=== PATIENT | female | born 1955 | race Caucasian/White ===

== ENCOUNTER 2017-07-02 13:10 | Emergency (ER) | payer BC, OTHER ==
[2017-07-02 13:41] VITALS: TEMP 98.1; BMI 30.1
[2017-07-02] MEDS ORDERED: SODIUM CHLORIDE 1,000 ML IV STA (13:49)
--- NOTE | 2017-07-02 13:49 | PDOC ---
History of Present Illness - General Chief Complaint: Lightheaded Stated Complaint: DIZZY, SLEEPY, & VISION CHANGE Time Seen by Provider: 07/02/17 13:20 - History of Present Illness Initial Comments: 07/02/17 13:50 62 F with h/o HTN presents to ER with somnolence and dizziness. Pt believes she accidentally took an ambien. She states that she thinks she may have placed one in her pillbox just in case she needed it. However, she is not certain. Pt took her meds at around 12 today and states that about 30 minutes later, she began to feel very sleepy and "woozy". She denies any unilateral weakness or numbness. Denies double vision or blurred vision. Denies slurred speech, though she states her mouth feels very dry. Pt does not know if this is a normal reaction to ambien for her, as she has only taken it a few occasions and usually goes directly to bed. Pt denies PICKENS/N/V. Denies F/C. Denies CP/SOB. Denies room-spinning sensation. Past History - Past Medical History Allergies/Adverse Reactions: Allergies Allergy/AdvReac Type Severity Reaction Status Date / Time No Known Allergies Allergy Unverified 07/02/17 13:41 Home Medications: Ambulatory Orders Ambien 07/02/17 Cholecalciferol (Vitamin D3) [Vitamin D3] 1,000 unit PO DAILY 07/02/17 Cider Vinegar [Apple Cider Vinegar] 500 mg PO DAILY 07/02/17 Hydrochlorothiazide PO DAILY 07/02/17 Metoprolol Succinate [Toprol Xl -] 50 mg PO DAILY 07/02/17 Red Yeast Rice DAILY 07/02/17 Strattera PO DAILY 07/02/17 COPD: No HTN: Yes Hypercholesterolemia: Yes Psychiatric Problems: Yes Other medical history: VERTIGO - Suicide/Smoking/Psychosocial Hx Smoking History: Current some day smoker Have you smoked in the past 12 months: Yes Number of Cigarettes Smoked Daily: 0 Information on smoking cessation initiated: Yes 'Breaking Loose' booklet given: 07/02/17 Hx Alcohol Use: Yes (RARE) Drug/Substance Use Hx: No Substance Use Type: None Review of Systems - Review of Systems Comments:: 07/02/17 14:10 "GENERAL/CONSTITUTIONAL: No fever or chills. No weakness. HEAD, EYES, EARS, NOSE AND THROAT: No change in vision. No ear pain or discharge. No sore throat. CARDIOVASCULAR: No chest pain or shortness of breath. RESPIRATORY: No cough, wheezing, or hemoptysis. GASTROINTESTINAL: No nausea, vomiting, diarrhea or constipation. GENITOURINARY: No dysuria, frequency, or change in urination. MUSCULOSKELETAL: No joint or muscle swelling or pain. No neck or back pain. SKIN: No rash NEUROLOGIC: + somnolence and dizziness, No headache, vertigo, loss of consciousness, or change in strength/sensation. ENDOCRINE: No increased thirst. No abnormal weight change. HEMATOLOGIC/LYMPHATIC: No anemia, easy bleeding, or history of blood clots. ALLERGIC/IMMUNOLOGIC: No hives or skin allergy. " *Physical Exam - Vital Signs Last Vital Signs Temp Pulse Resp BP Pulse Ox 98.1 F 110 H 15 162/96 99 07/02/17 13:17 07/02/17 13:17 07/02/17 13:17 07/02/17 13:17 07/02/17 13:17 - Physical Exam Comments: 07/02/17 14:11 "GENERAL: Awake, alert, and fully oriented, in no acute distress HEAD: No signs of trauma EYES: PERRLA, EOMI, sclera anicteric, conjunctiva clear ENT: Auricles normal inspection, hearing grossly normal, nares patent, oropharynx clear without exudates. Moist mucosa NECK: Nontender, no stepoffs, Normal ROM, supple, no lymphadenopathy, JVD, or masses LUNGS: Breath sounds equal, clear to auscultation bilaterally. No wheezes, and no crackles HEART: Regular rate and rhythm, normal S1 and S2, no murmurs, rubs or gallops ABDOMEN: Soft, nontender, normoactive bowel sounds. No guarding, no rebound. No masses EXTREMITIES: Normal range of motion, no edema. No clubbing or cyanosis. No cords, erythema, or tenderness NEUROLOGICAL: Cranial nerves II through XII intact. 5/5 strength and sensation in all extremities, Normal speech, normal gait SKIN: Warm, Dry, normal turgor, no rashes or lesions noted. " ED Treatment Course - LABORATORY CBC & Chemistry Diagram: 07/02/17 14:00 07/02/17 14:00 Medical Decision Making - Medical Decision Making 07/02/17 14:11 62 F with somnolence and dizziness after possibly accidentally ingesting ambien. Pt with NO neuro deficits on exam. No vertiginous symptoms. Very unlikely that this is a true CVA. - Labs - CT head - Monitor and reassess 07/02/17 16:[address] unremarkable. Pt reassessed - states that she slept very well and now feels much better. Ambulatory in ER with steady gait. Neuro exam continues to be normal. Pt well appearing, awake and alert, vitals now normal, clinically stable for DC. I discussed the physical exam findings, ancillary test results and final diagnoses with the patient. I answered all of the patient's questions. The patient was satisfied with the care received and felt comfortable with the discharge plan and treatment plan. The patient agrees to follow up with the primary care physician within 24-72 hours. *DC/Admit/Observation/Transfer Diagnosis at time of Disposition: Ambien accidental overdose - Discharge Dispostion Disposition: HOME Condition at time of disposition: Good - Referrals Referrals: Kamaljit Rudd [Primary Care Provider] - - Patient Instructions Printed Discharge Instructions: DI for Safely Taking and Storing Medications - - Adults Additional Instructions: Please be careful to check your medications before you take them. If your woozy feeling or dizziness persist or if you experience any other concerning symptoms, return to the ER immediately. Otherwise, follow up with your primary doctor within 1 week. - Post Discharge Activity - Attestations Physician Attestion: 07/02/17 16:57 I, Dr. Yung Samayoa MD, attest that this document has been prepared under my direction and personally reviewed by me in its entirety. I further attest, that it accurately reflects all work, treatment, procedures and medical decision -making performed by me.
[2017-07-02 14:11] LABS: BASO % 2.3 % (0-2.0); EOS % 2.3 % (0-4.5); HEMATOCRIT 43.6 % (32.4-45.2); HEMOGLOBIN 14.8 GM/dl (10.7-15.3); LYMPH % 24.8 % (8-40); MCH 32.3 pg (25.7-33.7); MEAN CELL VOLUME 94.9 fl (80-96); MEAN PLT VOLUME 7.5 fl (7.5-11.1); MONO % 8.7 % (3.8-10.2); NEUT % 61.9 % (42.8-82.8); PLATELET COUNT 300 K/MM3 (134-434); RBC 4.59 M/mm3 (3.60-5.2); RDW 12.3 % (11.6-15.6); WHITE BLOOD COUNT 6.6 K/mm3 (4.0-10.8)
[2017-07-02 14:22] LABS: ALK PHOS 73 U/L (32-92); ANION GAP 10 (8-16); BILIRUBIN,TOTAL 0.7 mg/dl (0.2-1.0); BLOOD UREA NITROGEN 18 mg/dl (7-18); CALCIUM 9.4 mg/dl (8.4-10.2); CHLORIDE 100 mmol/L (98-107); CO2 24 mmol/L (22-28); CREATININE 0.7 mg/dl (0.6-1.3); GLUCOSE,RANDOM 93 mg/dl (74-106); POTASSIUM 3.5 mmol/L (3.5-5.1); SGOT/AST 36 U/L (10-42); SGPT/ALT 43 U/L (10-40); SODIUM 134 mmol/L (136-145); TOT PROT 7.3 g/dl (6.4-8.3)
[2017-07-02 15:06] LABS: PH,URINE 5.5 (4.5-8); URINE APPEARANCE Clear; URINE BILIRUBIN Negative (NEGATIVE); URINE GLUCOSE (UA) Negative (NEGATIVE); URINE KETONE Negative (NEGATIVE); URINE NITRITE Negative (NEGATIVE); URINE PROTEIN Negative (NEGATIVE); URINE UROBILINOGEN 0.2 (0.2-1.0)
[2017-07-02 15:07] LABS: URINE BLOOD 1+ (NEGATIVE); URINE COLOR YELLOW; URINE LEUK ESTERASE 1+ (NEGATIVE)
[2017-07-02 15:14] LABS: EPI CELLS FEW /HPF
[2017-07-02 15:49] VITALS: BP 140/88; PULSE 90
--- NOTE | 2017-07-04 15:57 | EKG ---
Test Reason : Blood Pressure : / mmHG Vent. Rate : 092 BPM Atrial Rate : 092 BPM P-R Int : 154 ms QRS Dur : 106 ms QT Int : 380 ms P-R-T Axes : 026 015 013 degrees QTc Int : 469 ms SINUS RHYTHM WITH OCCASIONAL PREMATURE VENTRICULAR COMPLEXES NON-SPECIFIC INTRA-VENTRICULAR CONDUCTION DELAY NO PREVIOUS ECGS AVAILABLE Confirmed by MD BAY MARJORY ([id number]) on 07/04/2017 3:56:50 PM Referred By: Olamide CUI Confirmed By:MACK BAY MD
== END 2017-07-02 17:06 | disposition home or self-care (01) ==
LOC: FER 13:10
PROC: 3E0337Z Introduction of Electrolytic and Water Balance Substance into Peripheral Vein, Percutaneous Approach (ICD-10-PCS; principal; 2017-07-02)
DX: T42.6X1A Poisoning by other antiepileptic and sedative-hypnotic drugs, accidental (unintentional), initial encounter (principal); Y92.9 Unspecified place or not applicable
CPT/HCPCS: 36415; 70450-TC; 80053; 81003; 81015; 85025; 93005; 99283-25

== ENCOUNTER 2022-05-15 13:14 | Emergency (ER) | payer OTHER, BC ==
[2022-05-15 13:51] VITALS: BP 131/86; PULSE 75; RESP 20; TEMP 98.1; BMI 32.5
[2022-05-15] MEDS ORDERED: ACETAMINOPHEN 325 MG TABLET (FP) PO ONE (14:34)
[2022-05-15] MEDS ORDERED: ACETAMINOPHEN 325 MG TABLET (FP) ONE (14:51)
== END 2022-05-15 14:58 | disposition home or self-care (01) ==
LOC: FER 13:14
DX: M25.531 Pain in right wrist (principal); M25.511 Pain in right shoulder; W01.0XXA Fall on same level from slipping, tripping and stumbling without subsequent striking against object, initial encounter
CPT/HCPCS: 73030-TC-RT-FY; 73110-TC-RT-FY; 73130-TC-RT-FY; 99284-25

== ENCOUNTER 2023-09-03 13:56 | Emergency (ER) | payer OTHER, BC ==
[2023-09-03 14:22] VITALS: BP 139/84; PULSE 75; RESP 18; TEMP 98.3; BMI 21.9
[2023-09-03 14:23] LABS: EPITHELIAL CELLS 0-5 /hpf
[2023-09-03] MEDS: NITROFURANTOIN MACROCRYSTAL 50 MG CAPSULE (FP) PO ONE (18:02)
== END 2023-09-03 18:04 | disposition home or self-care (01) ==
LOC: FER 13:56
DX: R31.9 Hematuria, unspecified (principal); R11.0 Nausea
CPT/HCPCS: 74176-TC; 81003; 81015; 87086; 87186; 99284-25